=== PATIENT | female | born 1980 | race Caucasian/White ===

== ENCOUNTER 2018-01-03 15:27 | Inpatient (IN) ==
--- NOTE | 2018-01-03 15:48 | Emergency Department Note ---
ED Disposition Clinical Impression: Acute appendicitis Disposition: Still a Patient Condition on Discharge: Good Instructions: DI for Acute Abdomen Referrals: Shruti Mckeon APRN [Primary Care Provider] - - Critical Care Critical Care Time: No Attestation: On 01/03/18, the high probability of a clinically significant, sudden or life threatening deterioration of the following system(s) required my full and direct attention, intervention and personal management. The time I documented below is in addition to time spent performing reported procedures but includes the following listed in this critical care notation. Medical Decision Making - Medical Records MR Comment: [id number] Radiology called Acute appendicitis, I truman Mitchell MD he stated to call in surgery team, I truman staff to call in team. dw patient. - Oscar Inquiry Pt receiving controlled substance: No Vital Signs: 01/03/18 15:34 01/03/18 16:30 01/03/18 17:10 Temperature 98 F 97.8 F Temperature Source Oral Oral Pulse Rate [Right Brachial] 104 H 77 73 Respiratory Rate 18 18 18 Blood Pressure [Right Arm] 158/101 138/78 137/92 Blood Pressure Mean [Right Arm] 120 98 107 Blood Pressure Source [Right Arm] Automatic Cuff Automatic Cuff Automatic Cuff Blood Pressure Position [Right Arm] Sitting Supine Sitting 02 Sat by Pulse Oximetry 99 98 100 Oxygen Delivery Method Room Air Room Air Room Air 01/03/18 17:18 Temperature Temperature Source Pulse Rate [Right Brachial] 82 Respiratory Rate 16 Blood Pressure [Right Arm] 160/73 Blood Pressure Mean [Right Arm] 102 Blood Pressure Source [Right Arm] Automatic Cuff Blood Pressure Position [Right Arm] Sitting 02 Sat by Pulse Oximetry 95 Oxygen Delivery Method Room Air - Lab Data Lab Results 01/03/18 15:40: WBC 11.2 H, RBC 4.61, Hgb 13.9, Hct 42.3, MCV 91.9, MCH 30.2, MCHC 32.9, RDW 12.6, Plt Count 310, MPV 8.1, Neut % (Auto) 70.4, Lymph % (Auto) 25.3, [place] % (Auto) 3.4, Eos % (Auto) 0.5, Baso % (Auto) 0.4, Neut # (Auto) 7.9 H, Lymph # (Auto) 2.8, [place] # (Auto) 0.4, Eos # (Auto) 0.1, Baso # (Auto) 0.0 01/03/18 15:40: Sodium 137, Potassium 3.7, Chloride 103, Carbon Dioxide 26, Anion Gap 11.7, BUN 11, Creatinine 0.84, Estimated Creat Clear 127, Estimated GFR 77, Est GFR ( Amer) 93, Glucose 111 H, Calcium 8.9, Total Bilirubin 0.3, AST 25, ALT 49, Alkaline Phosphatase 172 H, Total Protein 8.4 H, Albumin 4.2, Globulin 4.2 H, Albumin/Globulin Ratio 1.0 L, Amylase 58, Lipase 104 01/03/18 15:55: Urine Color Yellow, Urine Appearance Clear, Urine pH 6.0, Ur Specific [place] >= 1.030, Urine Protein Negative, Urine Glucose (UA) Negative, Urine Ketones Negative, Urine Blood 2+, Urine Nitrate Negative, Urine Bilirubin Negative, Urine Urobilinogen 0.2, Ur Leukocyte Esterase Negative, Urine RBC Occasional, Urine WBC Occasional, Ur Squamous Epith Cells Tntc, Urine Bacteria 2 +, Urine Mucus 1+ 01/03/18 15:58: Urine HCG, Qual Negative Result diagrams: 01/03/18 15:40 01/03/18 15:40 Orders (Tests/Meds): ED MEDICATIONS Generic Name Dose Route Start Last Admin Trade Name Freq PRN Reason Stop Dose Admin Ertapenem 1 gm/ Sodium 50 mls @ 100 mls/hr 01/03/18 17:30 Chloride IV 01/17/18 17:29 Q24H HERNAN Protocol Discontinued Medications Generic Name Dose Route Start Last Admin Trade Name Freq PRN Reason Stop Dose Admin Diphenhydramine HCl 25 mg 01/03/18 15:49 01/03/18 16:10 Benadryl 50mg/1ml Vial IV 01/03/18 15:50 25 mg ONCE ONE Administration Diphenhydramine HCl 25 mg 01/03/18 17:19 Benadryl 50mg/1ml Vial IV 01/03/18 17:20 ONCE ONE Sodium Chloride 1,000 mls @ 999 mls/hr 01/03/18 16:00 01/03/18 16:03 Sod Chlor 0.9% 1000ml Bag IV 01/03/18 17:00 999 mls/hr .Q1H1M HERNAN Administration Ketorolac Tromethamine 15 mg 01/03/18 17:19 Toradol 30mg/Ml Vial IV 01/03/18 17:20 ONCE ONE Metoclopramide HCl 10 mg 01/03/18 15:49 01/03/18 16:11 Reglan 10mg/2ml Vial IVP 01/03/18 15:50 10 mg ONCE ONE Administration Metoclopramide HCl 10 mg 01/03/18 17:19 Reglan 10mg/2ml Vial IVP 01/03/18 17:20 ONCE ONE Ondansetron HCl 4 mg 01/03/18 16:02 01/03/18 16:03 Zofran 4mg/2ml Vial IV 01/03/18 16:03 4 mg ONCE ONE Administration ORDERS Category Date Time Status Urine Culture Stat Micro 01/03/18 15:55 Received General Adult HPI - General Chief complaint: Abdominal Pain Stated complaint: Sharp pains in abdomen, nauseated Time Seen by Provider: 01/03/18 15:47 Mode of Arrival: Ambulatory Limitations: No Limitations Description of Symptoms (Recalled from ER Triage Doc. by RN): pt states woke up this morning at 0200, by expressive abd cramping and pain; nausea. no vomiting. no diarrhea. used the bathroom for stools x 3, but they were just really soft, not watery. very anxious and crying with presentation. has significant history including anxiety for which she takes vistaril and she is also a suboxone patient - History of Present Illness HPI narrative: Patient states she woke up at 2 AM with crampy abdominal pain she states she has some diarrhea nausea she denies any vomiting denies any fevers or chills states her pain is moderate to severe at times and more in her bilateral lower quadrant no radiation. Hx of Suboxone - Related Data Home Medications Medication Instructions Recorded Confirmed Buprenorphine HCl/Naloxone HCl 1 tab PO BID 10/25/17 10/25/17 [Zubsolv 5.7-1.4 mg Tablet Sl] Previous Rx's Medication Instructions Recorded Nitrofurantoin Monohyd/M-Cryst 100 mg PO BID #20 cap 10/25/17 [Macrobid 100 mg Capsule] Phenazopyridine HCl [Pyridium 200 pow PO TID PRN #6 tab 10/25/17 200mg Tablet] Allergies Allergy/AdvReac Type Severity Reaction Status Date / Time codeine Allergy Intermediate Hives Verified 10/03/17 23:42 Sulfa (Sulfonamide Allergy Intermediate Hives Verified 10/03/17 23:42 Antibiotics) [facility] History I have reviewed the patient's past medical history: Yes Medical History: Denies:: Cancer, Diabetes Mellitus Type 1, Diabetes Mellitus Type 2, Hypertension, MRSA Other Surgeries: Yes: No Previous Surgery Amputation: No Fractures: No - Social History Educational Level: Completed High School Smoking Status: Current every day smoker Tobacco Type: cigarettes Alcohol Intake: former Alcohol Intake Frequency:: holidays/special occasions only Substance Use Type: former substance user - Psychiatric History Expresses thoughts of harming self/others: None Suicide Plan Description: No Plan ROS Obtained: Yes All systems reviewed & no additional complaints Physical Exam General Appearance: Nontoxic Head: Normocephalic, without obvious abnormality, atraumatic. Eyes: conjunctiva/corneas clear ENT: Mucous membranes moist. Neck: No jugular venous distention. Cardiac: regular rate and rhythm Lungs: Clear to auscultation bilaterally Abdomen: Diffusely tender, Nondistended, positive bowel sounds, no rebound : No CVA tenderness Extremities: no edema Musculoskeletal: No chest wall tenderness Skin: No rashes or lesions to exposed skin. Neurologic: Alert. No gross focal deficits Psychiatric: anxious affect - General General appearance: anxious - Respiratory Respiratory exam: Absent: respiratory distress - Cardiovascular Cardiovascular exam: Absent: JVD - Neurological Exam Neurological exam: Present: alert
[2018-01-03 16:07] LABS: Appearance,Urine CLEAR (Clear); Bilirubin,Urine Negative (Negative); Blood, Urine 2+ (Negative); Color,Urine YELLOW (Yellow); Glucose,Urine (UA) Negative (Negative); Ketones,Urine Negative (Negative); Leukocyte Esterase,Urine Negative (Negative); Microscopic, Urine URINE MICROSCOPIC (MICROSCOPIC); Protein,Urine Negative (Negative); Specific Gravity, Urine >= 1.030 (1.005-1.030); Urobilinogen,Urine 0.2 EU/dl (0.2)
[2018-01-03 16:14] LABS: Bacteria,Urine 2+ /lpf; Mucus,Urine 1+ /lpf; RBC,Urine Occasional #/hpf (0-3); Squamous Epithelial Cell,Urine TNTC #/hpf (0-5); WBC,Urine Occasional #/hpf (0-3)
[2018-01-03 16:14] LABS: Albumin Level 4.2 gm/dL (3.4-5.0); Anion Gap 11.7 mEq/L (5-15); Bilirubin,Total 0.3 mg/dL (0.2-1.0); Calcium 8.9 mg/dL (8.5-10.1); Globulin 4.2 gm/dl (1.3-3.2); Potassium 3.7 mmoL/L (3.5-5.1); Total Protein,Serum 8.4 gm/dL (6.4-8.2)
[2018-01-03 16:23] LABS: Basophils % 0.4 % (0.1-2.0); Eosinophils # 0.1 K/mm3 (0.0-0.4); Eosinophils % 0.5 % (0.1-12.0); Hematocrit 42.3 % (37.0-47.0); Hemoglobin 13.9 g/dL (12.2-16.2); Lymphocytes # 2.8 K/mm3 (0.7-4.5); Lymphocytes % 25.3 K/mm3 (10-50); Mean Corpuscular HGB Conc 32.9 g/dL (31.8-35.4); Mean Corpuscular Hemoglobin 30.2 pg (27.0-31.2); Mean Corpuscular Volume 91.9 fl (81-99); Mean Platelet Volume 8.1 fl (7.4-10.4); Monocytes # 0.4 K/mm3 (0.1-1.0); Monocytes % 3.4 % (1.7-9.3); Neutrophils # 7.9 K/mm3 (1.8-7.8); Neutrophils % 70.4 % (37.0-80.0); Platelet Count 310 K/mm3 (142-424); Red Blood Count 4.61 M/mm3 (4.20-5.40); Red Cell Distribution Width 12.6 % (11.5-17.5); White Blood Count 11.2 K/mm3 (4.8-10.8)
--- NOTE | 2018-01-03 19:52 | Operative Note ---
Date of procedure: 01/03/18 Pre-op Diagnosis:: Appendicitis Post-op Diagnosis:: Appendicitis with focal perforation Procedure performed:: Laparoscopic appendectomy Surgeon:: John Mitchell MD MEDICAL HOUSEKEEPER:: Thierno Sher Anesthesia: GETA Estimated blood loss (mL): 15 Operative findings:: Severe inflammation of the mid and distal appendix with focal perforation with minimal manipulation Operative note:: After informed consent was obtained, the patient was taken to the operating room and placed in the supine position. General anesthesia was induced and her abdomen was prepped and draped in a sterile fashion. After infiltration with local anesthetic an infraumbilical incision was made. A Veress needle was placed in position. The abdomen was insufflated. A 12 mm optical trocar was placed in position. Under direct visualization, an additional 5 mm trocar was placed in the suprapubic position. A 5 mm trocar was then placed in the left lower quadrant. The appendix was easily visualized. Severe inflammation and periappendiceal fat stranding noted. With minimal manipulation the appendix had a focal perforation noted along its mid/distal region. The fluid was evacuated by way of suction and copious irrigation was also utilized. A small window was made at the base of the mesoappendix and a ADDY stapler was utilized to transect at this site. The mesoappendix was carefully taken down with harmonic justice. The appendix was placed in a retrieval bag and removed through the infraumbilical trocar site. No sign of ongoing bleeding or stump leak was noted. Evaluation of the staple margin revealed good hemostasis. No pockets of purulence were noted. The right lower quadrant was once again irrigated. The fascia at the infraumbilical trocar site was reapproximated with interrupted Ethibond. All wounds were irrigated and skin was closed with 4 -0 Monocryl. Sterile dressings were applied. The patient's anesthetic agents were reversed and she was extubated prior to transfer to recovery. Condition: stable Disposition: PACU Specimens:: Appendix Complications:: No immediate
--- NOTE | 2018-01-03 19:54 | Progress Note ---
[facility] Anesthesia Checklist - Structural Data Admitted From: Home Planned Operative Procedure/s: lap appy Consent for Planned Operative Procedure(s) Verified: Yes - Airway Assessment C-Spine Mobility Assessed: Yes TMJ Mobility Assessed: Yes Dentition: Good Dentition - Neurological Assessment Level of Consciousness: Awake, Alert, Appropriate - Anesthesia Plan Anesthesia Risk discussed: Yes Anesthesia Plan: Verified ASA Class: II Anesthesia Type: General [facility] Anesthesia HX I have reviewed the patient's past medical history: Yes Medical History: Denies:: Cancer, Diabetes Mellitus Type 1, Diabetes Mellitus Type 2, Hypertension, MRSA, Seizures Other Surgeries: Yes: No Previous Surgery Amputation: No Fractures: No
--- NOTE | 2018-01-03 19:55 | Progress Note ---
[facility] Anesthesia Record Part I Intake, IV Amount: 1,500 Estimated blood loss (mL): 0 Urine output (mL): 200 Blood Pressure: 128/84 SaO2: 97 Pulse Rate: 93 Respiratory Rate: 12 Temperature: 97.8 F Patient is:: Awake, Stable Stable to PACU at:: 19:50
--- NOTE | 2018-01-03 19:56 | Progress Note ---
[facility] Anesthesia Record Part II Discharge Time: 20:20 Destination: floor PACU nurse assessment reviewed?: Yes Patient Condition:: Good Anesthesia Complications:: None
--- NOTE | 2018-01-04 06:24 | Progress Note ---
Subjective Patient reports: other (sore. ambulating.) Exam Vital signs and Labs for Last 24 Hours: Temp Pulse Resp BP Pulse Ox 98.5 F 94 H 18 111/67 98 01/04/18 03:52 01/04/18 03:52 01/04/18 03:52 01/04/18 03:52 01/04/18 03:52 Laboratory Results - last 24 hr 01/03/18 15:40: WBC 11.2 H, RBC 4.61, Hgb 13.9, Hct 42.3, MCV 91.9, MCH 30.2, MCHC 32.9, RDW 12.6, Plt Count 310, MPV 8.1, Neut % (Auto) 70.4, Lymph % (Auto) 25.3, [place] % (Auto) 3.4, Eos % (Auto) 0.5, Baso % (Auto) 0.4, Neut # (Auto) 7.9 H, Lymph # (Auto) 2.8, [place] # (Auto) 0.4, Eos # (Auto) 0.1, Baso # (Auto) 0.0 01/03/18 15:40: Sodium 137, Potassium 3.7, Chloride 103, Carbon Dioxide 26, Anion Gap 11.7, BUN 11, Creatinine 0.84, Estimated Creat Clear 127, Estimated GFR 77, Est GFR ( Amer) 93, Glucose 111 H, Calcium 8.9, Total Bilirubin 0.3, AST 25, ALT 49, Alkaline Phosphatase 172 H, Total Protein 8.4 H, Albumin 4.2, Globulin 4.2 H, Albumin/Globulin Ratio 1.0 L, Amylase 58, Lipase 104 01/03/18 15:55: Urine Color Yellow, Urine Appearance Clear, Urine pH 6.0, Ur Specific [place] >= 1.030, Urine Protein Negative, Urine Glucose (UA) Negative, Urine Ketones Negative, Urine Blood 2+, Urine Nitrate Negative, Urine Bilirubin Negative, Urine Urobilinogen 0.2, Ur Leukocyte Esterase Negative, Urine RBC Occasional, Urine WBC Occasional, Ur Squamous Epith Cells Tntc, Urine Bacteria 2 +, Urine Mucus 1+ 01/03/18 15:58: Urine HCG, Qual Negative 01/03/18 18:10: Urine Color Yellow, Urine Appearance Clear, Urine pH 5.5, Ur Specific [place] 1.020, Urine Protein Negative, Urine Glucose (UA) Negative, Urine Ketones Negative, Urine Blood 1+, Urine Nitrate Negative, Urine Bilirubin Negative, Urine Urobilinogen 0.2, Ur Leukocyte Esterase Negative, Urine RBC Occasional, Urine WBC Occasional, Ur Squamous Epith Cells 5-10, Urine Bacteria 1 + I & O for Last 24 hours: Intake & Output 01/01/18 01/02/18 01/03/18 01/04/18 11:59 11:59 11:59 11:59 Intake Total 3633 / 3633 Balance 3633 / 3633 Weight 199 lb 3.2 oz - Constitutional no acute distress - *Routine Cardiovascular Exam Present: RRR - *Routine Abdominal Exam Present: soft Progress Note: A&P (1) Acute appendicitis Status: Acute Assessment and plan: Focal perforation with initial manipulation of the appendix secondary to severe inflammatory changes and suppurative changes. Continue IV antibiotics for now Likely advance diet slowly later today Increase ambulation Current Visit: Yes
[2018-01-04 07:23] LABS: Basophils % 0.1 % (0.1-2.0); Lymphocytes # 0.8 K/mm3 (0.7-4.5); Lymphocytes % 4.5 K/mm3 (10-50); Mean Corpuscular HGB Conc 32.4 g/dL (31.8-35.4); Mean Corpuscular Hemoglobin 29.9 pg (27.0-31.2); Mean Corpuscular Volume 92.3 fl (81-99); Mean Platelet Volume 8.6 fl (7.4-10.4); Monocytes # 0.6 K/mm3 (0.1-1.0); Neutrophils # 17.2 K/mm3 (1.8-7.8); Neutrophils % 92.4 % (37.0-80.0); Platelet Count 281 K/mm3 (142-424); Red Blood Count 4.02 M/mm3 (4.20-5.40); Red Cell Distribution Width 12.7 % (11.5-17.5)
--- NOTE | 2018-01-04 07:25 | Pharmacy Consult Notes ---
[facility] Pharmacy VTE Monitoring - Patient Demographics Admission date: 01/03/18 Report Date: 01/04/18 Time: 07:25 Allergies/Adverse Reactions: Patient Allergies codeine Allergy (Intermediate, Verified 10/03/17 23:42) Hives Sulfa (Sulfonamide Antibiotics) Allergy (Intermediate, Verified 10/03/17 23:42) Hives Height: 1.63 m Weight: 90.356 kg Patient Problems: Current Active Problems Acute appendicitis (Acute) - VTE Risk Labs: VTE Related Lab Results Hgb 13.9 g/dL (12.2-16.2) 01/03/18 15:40 Hct 42.3 % (37.0-47.0) 01/03/18 15:40 Plt Count 310 K/mm3 (142-424) 01/03/18 15:40 BUN 11 mg/dL (7-18) 01/03/18 15:40 Creatinine 0.84 mg/dL (0.55-1.02) 01/03/18 15:40 Estimated Creat Clear 127 mL/min (0-300) 01/03/18 15:40 Was VTE Risk Assessment Performed: Yes VTE Score: 2 VTE Risk Level: Very Low Risk - Prophylaxis VTE Prophylaxis Ordered?: Yes Types of VTE Prophylaxis: TEDS Knee High Location of Applied Device: Bilateral Lower Extremeties - VTE Diagnosis Confirmed Treatment or plan recommended: Continue Current Treatment
[2018-01-04 07:32] LABS: Hematocrit 36.8 % (37.0-47.0); Hemoglobin 11.9 g/dL (12.2-16.2); White Blood Count 18.5 K/mm3 (4.8-10.8)
[2018-01-04 09:25] LABS: Lymphocytes % 6 % (10-50); Monocytes % 3 % (2-9); Neutrophils % 86 % (42-76); Total Cells Counted 100
[2018-01-04 09:26] LABS: RBC Morphology Normal
[2018-01-05 06:19] LABS: Basophils % 0.3 % (0.1-2.0); Eosinophils # 0.2 K/mm3 (0.0-0.4); Eosinophils % 1.4 % (0.1-12.0); Lymphocytes # 2.2 K/mm3 (0.7-4.5); Lymphocytes % 16.7 K/mm3 (10-50); Mean Corpuscular HGB Conc 32.9 g/dL (31.8-35.4); Mean Corpuscular Hemoglobin 30.4 pg (27.0-31.2); Mean Corpuscular Volume 92.4 fl (81-99); Mean Platelet Volume 8.9 fl (7.4-10.4); Monocytes # 0.5 K/mm3 (0.1-1.0); Monocytes % 3.8 % (1.7-9.3); Neutrophils # 10.2 K/mm3 (1.8-7.8); Neutrophils % 77.8 % (37.0-80.0); Platelet Count 239 K/mm3 (142-424); Red Blood Count 3.52 M/mm3 (4.20-5.40); Red Cell Distribution Width 12.8 % (11.5-17.5)
[2018-01-05 06:35] LABS: Hematocrit 32.6 % (37.0-47.0); Hemoglobin 10.8 g/dL (12.2-16.2); White Blood Count 12.7 K/mm3 (4.8-10.8)
--- NOTE | 2018-01-05 06:38 | Progress Note ---
Subjective Patient reports: feels better, still having pain Exam Vital signs and Labs for Last 24 Hours: Temp Pulse Resp BP Pulse Ox 99.1 F 98 H 18 123/74 91 L 01/05/18 04:00 01/05/18 04:00 01/05/18 04:00 01/05/18 04:00 01/05/18 04:00 Laboratory Results - last 24 hr 01/04/18 06:15: WBC 18.5 H D, RBC 4.02 L, Hgb 11.9 L D, Hct 36.8 L, MCV 92.3, MCH 29.9, MCHC 32.4, RDW 12.7, Plt Count 281, MPV 8.6, Neut % (Auto) 92.4 H, Lymph % (Auto) 4.5 L, [place] % (Auto) 3.0, Eos % (Auto) 0.0 L, Baso % (Auto) 0.1, Neut # (Auto) 17.2 H, Lymph # (Auto) 0.8, [place] # (Auto) 0.6, Eos # (Auto) 0.0, Baso # (Auto) 0.0, Total Counted 100, Neutrophils % (Manual) 86 H, Band Neutrophils % 5.0, Lymphocytes % (Manual) 6 L, Monocytes % (Manual) 3, Platelet Estimate Normal, RBC Morphology Normal 01/05/18 05:45: WBC 12.7 H D, RBC 3.52 L, Hgb 10.8 L, Hct 32.6 L, MCV 92.4, MCH 30.4, MCHC 32.9, RDW 12.8, Plt Count 239, MPV 8.9, Neut % (Auto) 77.8, Lymph % ( Auto) 16.7, [place] % (Auto) 3.8, Eos % (Auto) 1.4, Baso % (Auto) 0.3, Neut # (Auto ) 10.2 H, Lymph # (Auto) 2.2, [place] # (Auto) 0.5, Eos # (Auto) 0.2, Baso # (Auto ) 0.0 I & O for Last 24 hours: Intake & Output 01/02/18 01/03/18 01/04/18 01/05/18 11:59 11:59 11:59 11:59 Intake Total 4113 / 4113 3847 / 3847 Output Total 500 / 500 Balance 3613 / 3613 3847 / 3847 Weight 199 lb 3.2 oz Microbiology Reports for the Last 24 Hours: Microbiology 01/03/18 15:55 Urine,Clean Catch Urine Culture - Preliminary - Constitutional no acute distress - *Routine Respiratory Exam Absent: respiratory distress - *Routine Abdominal Exam Present: soft Comments: dressing intact no erythema Progress Note: A&P (1) Acute appendicitis Status: Acute Assessment and plan: stable s/p lap appy advance diet possible d/c home later today Current Visit: Yes
--- NOTE | 2018-01-05 15:18 | Discharge Summary ---
General - General Admission date:: 01/03/18 Discharge date: 01/05/18 HPI HPI: This is a 37-year-old female who presented to the emergency department with right lower quadrant abdominal pain. A CT scan revealed changes consistent with appendicitis. The surgical service was consulted for admission. Hospital Course Hospital Course: The patient underwent laparoscopic appendectomy. Please see operative report for detail. Focal perforation with minimal manipulation was noted and the decision to maintain the patient on IV antibiotics during the immediate postoperative period was made. She progressed well. She remained afebrile stable normal vital signs throughout her postoperative course. Her diet was slowly advanced and she tolerated a full liquid diet without difficulty. On the afternoon of postoperative day 2 she was deemed appropriate for discharge. Objective Vital signs: Temp Pulse Resp BP Pulse Ox 98.6 F 92 H 18 122/72 92 L 01/05/18 07:52 01/05/18 07:52 01/05/18 14:16 01/05/18 07:52 01/05/18 07:52 no acute distress - *Routine HEENT Exam Head: Present: normocephalic, atraumatic - *Routine Neck Exam Present: full ROM - Routine Chest/Breast/Axilla Exam Chest wall: Absent: tenderness - *Routine Respiratory Exam Absent: respiratory distress - *Routine Cardiovascular Exam Present: RRR - *Routine Abdominal Exam Present: soft, tenderness. Absent: rebound Comments: RLQ - *Routine Extremities Exam Present: full ROM. Absent: cyanosis, clubbing, edema - Routine Back/Spine/Pelvis Exam Back/Spine: Present: full ROM - *Routine Skin Exam Present: intact - *Routine Neurological Exam Present: alert, oriented X3 - Routine Psychiatric Exam Present: normal affect Results Labs on day of discharge: Labs from last 24 hours 01/05/18 01/03/18 05:45 15:55 WBC 12.7 H D RBC 3.52 L Hgb 10.8 L Hct 32.6 L MCV 92.4 MCH 30.4 MCHC 32.9 RDW 12.8 Plt Count 239 MPV 8.9 Neut % (Auto) 77.8 Lymph % (Auto) 16.7 [place] % (Auto) 3.8 Eos % (Auto) 1.4 Baso % (Auto) 0.3 Neut # (Auto) 10.2 H Lymph # (Auto) 2.2 [place] # (Auto) 0.5 Eos # (Auto) 0.2 Baso # (Auto) 0.0 Urine Color Yellow Urine Appearance Clear Urine pH 6.0 Ur Specific [place] >= 1.030 Urine Protein Negative Urine Glucose (UA) Negative Urine Ketones Negative Urine Blood 2+ Urine Nitrate Negative Urine Bilirubin Negative Urine Urobilinogen 0.2 Ur Leukocyte Esterase Negative Urine RBC Occasional Urine WBC Occasional Ur Squamous Epith Cells Tntc Urine Bacteria 2+ Urine Mucus 1+ Preliminary micro results at discharge 01/03/18 15:55 Urine Culture - Preliminary Urine,Clean Catch Gram Negative Rods DS: Diagnosis - Discharge Diagnosis (1) Acute appendicitis Status: Acute Problem details: Focal perforation noted intraoperatively with minimal manipulation Discharge Plan - Patient Discharge Instructions ACTIVITY: No heavy lifting DIET: advance to your usual diet Additional Instructions: Continue Suboxone only after completion of post-op pain medication. Patient Instructions: DI for Acute Abdomen - Follow up Plan Follow up with: Shruti Mckeon APRN [Primary Care Provider] - John Mitchell MD [Staff Physician] - 01/10/18 Disposition: Home, Self-Senior Living Medications: Home Medications Medication Instructions Recorded Confirmed Type Buprenorphine HCl/Naloxone HCl 2 tab SL BID 10/25/17 01/04/18 History [Zubsolv 5.7-1.4 mg Tablet Sl] hydrOXYzine HCl [Hydroxyzine HCl] 25 mg PO BID 01/04/18 01/04/18 History Prescriptions/Medication Reconciliation: Continue Buprenorphine HCl/Naloxone HCl [Zubsolv 5.7-1.4 mg Tablet Sl] 2 tab SL BID hydrOXYzine HCl [Hydroxyzine HCl] 25 mg PO BID
== END 2018-01-05 15:50 | disposition home or self-care (01) ==
LOC: ER 15:27 → OR 18:05 → 2ND 18:07 → OR 18:07 → OBSVTOIN 20:24
PROVIDERS: ADMIT Surgery; ATTEND Surgery

== ENCOUNTER 2018-02-06 11:01 | Inpatient (IN) ==
--- NOTE | 2018-02-06 11:32 | Emergency Department Note ---
ED Disposition Clinical Impression: Pelvic abscess, Systemic inflammatory response syndrome (SIRS) Disposition: Still a Patient Condition on Discharge: Serious Referrals: Shruti Mckeon APRN [Primary Care Provider] - - Critical Care Critical Care Time: Yes Attestation: On , the high probability of a clinically significant, sudden or life threatening deterioration of the following system(s) required my full and direct attention, intervention and personal management. The time I documented below is in addition to time spent performing reported procedures but includes the following listed in this critical care notation. Vital system(s) involved:: Circulatory Failure My critical care processes included: Assessment & monitoring of V/S, Initial and Re-exams, Data Review/Interpretation, Coordinating Care, Medication Orders and management, Documentation Medical Decision Making - Oscar Inquiry Pt receiving controlled substance: No Oscar was queried for this patient: No Vital Signs: 02/06/18 11:19 02/06/18 11:34 02/06/18 12:50 Temperature 98 F Temperature Source Tympanic Pulse Rate [Right Radial] 147 H 134 H 102 H Respiratory Rate 20 22 Blood Pressure [Right Arm] 86/48 105/59 109/73 Blood Pressure Mean [Right Arm] 60 74 85 Blood Pressure Source [Right Arm] Automatic Cuff Automatic Cuff Automatic Cuff Blood Pressure Position [Right Arm] Sitting Sitting Sitting 02 Sat by Pulse Oximetry 98 97 98 Oxygen Delivery Method Room Air Room Air - Lab Data Lab Results 02/06/18 11:25: WBC 65.3 H*, RBC 4.54, Hgb 13.7, Hct 42.1, MCV 92.6, MCH 30.1, MCHC 32.5, RDW 12.4, Plt Count 118 L, MPV 12.9 H, Neut % (Auto) 82.4 H, Lymph % (Auto) 11.3, [place] % (Auto) 5.4, Eos % (Auto) 0.9, Baso % (Auto) 2.7 H, Neut # (Auto) 53.8 H, Lymph # (Auto) 7.4 H, [place] # (Auto) 3.5 H, Eos # (Auto) 0.6 H, Baso # (Auto) 1.7 H, Total Counted 100, Neutrophils % (Manual) 50, Band Neutrophils % 4.0, Lymphocytes % (Manual) 32, Atypical Lymphs % 1.0, Monocytes % (Manual) 13 H, Differential Comment , Platelet Estimate Slight decrease, RBC Morphology Normal 02/06/18 11:25: Serum HCG, Qual Negative 02/06/18 11:40: Sodium 134 L, Potassium 3.8, Chloride 96 L, Carbon Dioxide 21, Anion Gap 20.8 H, BUN 22 H, Creatinine 1.44 H, Estimated Creat Clear 74, Estimated GFR 41 L, Est GFR ( Amer) 50 L, Glucose 183 H, Calcium 8.6, Total Bilirubin 2.6 H, AST 38 H, ALT 20, Alkaline Phosphatase 308 H, Total Protein 7.6, Albumin 2.3 L, Globulin 5.3 H, Albumin/Globulin Ratio 0.4 L 02/06/18 11:40: Lactate 4.4 H Result diagrams: 02/06/18 11:25 02/06/18 11:40 Orders (Tests/Meds): ED MEDICATIONS Generic Name Dose Route Start Last Admin Trade Name Freq PRN Reason Stop Dose Admin Ertapenem 1 gm/ Sodium 50 mls @ 100 mls/hr 02/06/18 11:45 Chloride IV 02/20/18 11:44 Q24H HERNAN Protocol Discontinued Medications Generic Name Dose Route Start Last Admin Trade Name Freq PRN Reason Stop Dose Admin Diatrizoate Meglum/Diatrizoate Sod 30 ml 02/06/18 11:27 02/06/18 11:39 Gastrografin 66%-10% 30ml PO 02/06/18 11:28 30 ml ONCE ONE Administration Diatrizoate Meglum/Diatrizoate Sod 30 ml 02/06/18 13:48 Gastrografin 66%-10% 30ml PO 02/06/18 13:49 ONCE ONE Sodium Chloride 1,000 mls @ 999 mls/hr 02/06/18 11:30 02/06/18 11:38 Sod Chlor 0.9% 1000ml Bag IV 02/06/18 12:30 999 mls/hr .Q1H1M HERNAN Administration Morphine Sulfate 2 mg 02/06/18 11:27 02/06/18 11:38 Morphine 2mg/Ml Syringe IV 02/06/18 11:28 2 mg ONCE ONE Administration Morphine Sulfate 2 mg 02/06/18 12:43 02/06/18 12:57 Morphine 2mg/Ml Syringe IV 02/06/18 12:44 2 mg ONCE ONE Administration Ondansetron HCl 4 mg 02/06/18 11:27 02/06/18 11:38 Zofran 4mg/2ml Vial IV 02/06/18 11:28 4 mg ONCE ONE Administration Promethazine HCl 12.5 mg 02/06/18 12:43 02/06/18 12:56 Phenergan 25mg/Ml 1ml Vial IV 02/06/18 12:44 12.5 mg ONCE ONE Administration Sodium Chloride 25 ml 02/06/18 12:43 Sod Chlor 0.9% 25ml Bag IV 02/06/18 12:44 ONCE ONE ORDERS Category Date Time Status Drug Screen,Urine Stat Lab 02/06/18 11:25 Ordered Lactic Acid Follow Up (RFLX 1) Stat Lab 02/06/18 12:13 Ordered Peripheral Smear Review Stat Lab 02/06/18 11:25 Received Urinalysis and Microscopic Stat Lab 02/06/18 11:25 Ordered Blood Culture Stat Micro 02/06/18 11:36 Ordered - CT Data CT Scan: Abdomen, Pelvis Time Received: 12:[address] Reviewed: Yes: I have viewed the radiologist's interpretation Preliminary Findings: Abnormal Findings Narrative: MPRESSION: 1. Complex pelvic fluid collection consistent with loculated pelvic abscess with phlegmonous changes and small amount of fluid in the pelvis along with ascites. 2. Generalized ascites. 3. The uterus shows some enhancement. This could be related to overlying inflammation. Medical Decision Narrative: The patient was initially hypotensive before she starts IV fluids repeated blood pressure was 105/74 with heart rate of 130/min, I order blood cultures lactic acid and IV antibiotic Invanz. her wbcs was 65k and orders to abdomen CT with IV contrast I called and discussed with Dr. Perez for stat read. I discussed with the patient and her pros and cons of obtaining IV contrast prior to obtaining BUN/creatinin, at this point the risk of peritonitis pelvic abscess and sepsis outweighs waiting for test results and she was agreeable. [address] Sandip Mello the surgeon who will discuss the CT scan with the radiologist Dr. Perez. Dr. Mello suggested the patient to be admitted to his service and Dr. Perez to do a CT scan guided abscess aspiration . Abdominal Pain HPI - General Stated Complaint: stomach pain vomiting Time Seen by Provider: 02/06/18 11:20 Mode of Arrival: Ambulatory Limitations: No Limitations Description of Symptoms (Recalled from ER Triage Doc. by RN): Abdominal pain - History of Present Illness HPI narrative: 37 years old white female smoker with no significant past medical history. She underwent uneventful appendectomy 1 months ago. 3 days ago she developed decreased appetite and this morning at 9:30 AM she developed multiple vomiting x 6 without hematemesis or coffee-ground emesis so she decided to come to the ED. on the way to the ED she developed periumbilical sharp pain that resolved spontaneously. Upon arrival to the ED she went to the bathroom and she had a good bowel move without melanotic stool or bleeding per rectum. Patient denies chest pain shortness of breath hemoptysis or palpitations. MD complaint: abdominal pain Consistency: now resolved Location: periumbilical Quality: sharp Radiation: none Relieving factors: nothing Exacerbating factors: other (She was riding in the car when the pain developed. ) Associated symptoms: nausea, vomiting - Related Data LMP Date: 02/03/18 Home Medications Medication Instructions Recorded Confirmed Buprenorphine HCl/Naloxone HCl 2 tab SL BID 10/25/17 01/04/18 [Zubsolv 5.7-1.4 mg Tablet Sl] hydrOXYzine HCl [Hydroxyzine HCl] 25 mg PO BID 01/04/18 01/04/18 hydroxyzine pamoate 25 mg capsule 25 mg PO QID PRN 01/10/18 Buprenorphine HCl/Naloxone HCl 5.7 mg PO BID 02/06/18 02/06/18 [Zubsolv 5.7-1.4 mg Tablet Sl] Allergies Allergy/AdvReac Type Severity Reaction Status Date / Time codeine Allergy Intermediate Hives Verified 02/06/18 11:26 Sulfa (Sulfonamide Allergy Intermediate Hives Verified 02/06/18 11:26 Antibiotics) [facility] History I have reviewed the patient's past medical history: Yes Medical History: Denies:: Cancer, Diabetes Mellitus Type 1, Diabetes Mellitus Type 2, Hypertension, MRSA, Seizures Other Medical History: Reports: Arthritis Other Surgeries: Yes: Appendectomy, Other Amputation: No Fractures: No - Social History Educational Level: Completed High School Smoking Status: Current every day smoker Tobacco Type: cigarettes # Packs/Day (cigarettes): 1 Alcohol Intake: never Alcohol Intake Frequency:: holidays/special occasions only Substance Use Type: former substance user Occupational Status: unemployed Housing: house Household Members: family - Psychiatric History Expresses thoughts of harming self/others: None Suicide Plan Description: No Plan Family Hx:: No significant family history ROS Obtained: Yes All systems reviewed & no additional complaints Physical Exam - General General appearance: alert, in no apparent distress - Head Head exam: atraumatic, normocephalic, normal inspection - Eye Eye exam: Present: normal appearance, PERRL, EOMI - ENT ENT exam: Present: normal exam, normal oropharynx, mucous membranes moist, TM's normal bilaterally, normal external ear exam - Neck Neck exam: Present: normal inspection, full ROM, trachea midline. Absent: meningismus, lymphadenopathy - Chest Chest inspection: Present: normal inspection, symmetric chest wall rise. Absent: tenderness - Respiratory Respiratory exam: Present: normal lung sounds bilaterally. Absent: respiratory distress - Cardiovascular Cardiovascular exam: Present: normal rhythm, tachycardia. Absent: JVD - Abdominal Exam Abdominal exam: Present: soft, tenderness, guarding, rigidity, diminished bowel sounds, tenderness at [place]Bur[place]'s Point, other (The abdomen is soft with right lower quadrant tenderness associated with guarding and rigidity diminished bowel sounds. ). Absent: distention, rebound - External exam: Present: normal external exam - Extremities Exam Extremities exam: Present: normal inspection, full ROM, normal capillary refill. Absent: calf tenderness - Back Exam Back exam: Present: normal inspection. Absent: tenderness, CVA tenderness (R), CVA tenderness (L) - Neurological Exam Neurological exam: Present: alert, oriented X3, CN II-XII intact, motor sensory deficit, reflexes normal - Psychiatric Psychiatric exam: Present: normal affect, normal mood - Skin Skin exam: Present: warm, dry, intact, normal color - Lymphatic Lymphatic Findings: no adenopathy
[2018-02-06 11:44] LABS: Basophils # 1.7 K/mm3 (0-0.2); Basophils % 2.7 % (0.1-2.0); Eosinophils # 0.6 K/mm3 (0.0-0.4); Eosinophils % 0.9 % (0.1-12.0); Hematocrit 42.1 % (37.0-47.0); Hemoglobin 13.7 g/dL (12.2-16.2); Lymphocytes # 7.4 K/mm3 (0.7-4.5); Lymphocytes % 11.3 K/mm3 (10-50); Mean Corpuscular HGB Conc 32.5 g/dL (31.8-35.4); Mean Corpuscular Hemoglobin 30.1 pg (27.0-31.2); Mean Corpuscular Volume 92.6 fl (81-99); Mean Platelet Volume 12.9 fl (7.4-10.4); Monocytes # 3.5 K/mm3 (0.1-1.0); Monocytes % 5.4 % (1.7-9.3); Neutrophils # 53.8 K/mm3 (1.8-7.8); Neutrophils % 82.4 % (37.0-80.0); Platelet Count 118 K/mm3 (142-424); Red Blood Count 4.54 M/mm3 (4.20-5.40); Red Cell Distribution Width 12.4 % (11.5-17.5)
[2018-02-06 11:48] LABS: White Blood Count 65.3 K/mm3 (4.8-10.8)
[2018-02-06 12:19] LABS: Albumin Level 2.3 gm/dL (3.4-5.0); Albumin/Globulin Ratio 0.4 (1.1-1.8); Anion Gap 20.8 mEq/L (5-15); Bilirubin,Total 2.6 mg/dL (0.2-1.0); Calcium 8.6 mg/dL (8.5-10.1); Globulin 5.3 gm/dl (1.3-3.2); Potassium 3.8 mmoL/L (3.5-5.1); Total Protein,Serum 7.6 gm/dL (6.4-8.2)
[2018-02-06 12:31] LABS: Lymphocytes % 32 % (10-50); Monocytes % 13 % (2-9); Neutrophils % 50 % (42-76); RBC Morphology Normal; Total Cells Counted 100
--- NOTE | 2018-02-06 13:45 | History & Physical Report ---
HPI HPI: ABDOMINAL PAIN Patient is a 37 year old female who had undergone laparoscopic appendectomy by Dr. Mitchell 4 weeks ago. She acutely inflamed appendix and there was focal perforation of the appendix with minimal manipulation intraoperatively. She did remain an inpatient for several days on intravenous antibiotics and since she was discharged on oral antibiotics. She had done well after surgery. However, about 5 days ago, she began experiencing abdominal discomfort across the lower abdomen in the belt line area with some radiation to her back. She felt pressure and bloating. This has persisted and become progressively more severe. She had increasing pain and discomfort today and presented to the emergency department this morning. Workup revealed a profound leukocytosis of 65,000 with mild lactic acidosis. She underwent CT scan. This reveals findings of a large pelvic abscess. Surgical consultation was obtained. [facility] History I have reviewed the patient's past medical history: Yes Medical History: Denies:: Cancer, Diabetes Mellitus Type 1, Diabetes Mellitus Type 2, Hypertension, MRSA, Seizures Other Medical History: Reports: Arthritis Other Surgeries: Yes: Appendectomy, Other Amputation: No Fractures: No - *Social History Educational Level: Completed High School Smoking Status: Current every day smoker Tobacco Type: cigarettes # Packs/Day (cigarettes): 1 Alcohol Intake: never Alcohol Intake Frequency:: holidays/special occasions only Substance Use Type: former substance user Occupational Status: unemployed Housing: house Household Members: family - Psychiatric History Expresses thoughts of harming self/others: None Suicide Plan Description: No Plan *Family Hx:: No significant family history Review of Systems - Constitutional Reports anorexia, Reports body ache(s) - Eyes Denies change in vision - ENT Denies dizziness - *Cardiovascular Denies chest pain - *Respiratory Denies shortness of breath - *Gastrointestinal Reports abdominal pain, Reports bloating - *Genitourinary Denies abnormal periods, Denies abnormal vaginal bleeding - *Musculoskeletal Denies abnormal walking - *Neurologic Denies dizziness Meds Home Medications Medication Instructions Recorded Confirmed Type Buprenorphine HCl/Naloxone HCl 2 tab SL BID 10/25/17 01/04/18 History [Zubsolv 5.7-1.4 mg Tablet Sl] hydrOXYzine HCl [Hydroxyzine HCl] 25 mg PO BID 01/04/18 01/04/18 History hydroxyzine pamoate 25 mg capsule 25 mg PO QID PRN 01/10/18 History Buprenorphine HCl/Naloxone HCl 5.7 mg PO BID 02/06/18 02/06/18 History [Zubsolv 5.7-1.4 mg Tablet Sl] Allergies Allergy/AdvReac Type Severity Reaction Status Date / Time codeine Allergy Intermediate Hives Verified 02/06/18 11:26 Sulfa (Sulfonamide Allergy Intermediate Hives Verified 02/06/18 11:26 Antibiotics) Exam Vital signs and Labs for Last 24 Hours: Temp Pulse Resp BP Pulse Ox 98 F 102 H 22 109/73 98 02/06/18 11:19 02/06/18 12:50 02/06/18 11:34 02/06/18 12:50 02/06/18 12:50 Laboratory Results - last 24 hr 02/06/18 11:25: WBC 65.3 H*, RBC 4.54, Hgb 13.7, Hct 42.1, MCV 92.6, MCH 30.1, MCHC 32.5, RDW 12.4, Plt Count 118 L, MPV 12.9 H, Neut % (Auto) 82.4 H, Lymph % (Auto) 11.3, [place] % (Auto) 5.4, Eos % (Auto) 0.9, Baso % (Auto) 2.7 H, Neut # (Auto) 53.8 H, Lymph # (Auto) 7.4 H, [place] # (Auto) 3.5 H, Eos # (Auto) 0.6 H, Baso # (Auto) 1.7 H, Total Counted 100, Neutrophils % (Manual) 50, Band Neutrophils % 4.0, Lymphocytes % (Manual) 32, Atypical Lymphs % 1.0, Monocytes % (Manual) 13 H, Differential Comment , Platelet Estimate Slight decrease, RBC Morphology Normal 02/06/18 11:25: Serum HCG, Qual Negative 02/06/18 11:40: Sodium 134 L, Potassium 3.8, Chloride 96 L, Carbon Dioxide 21, Anion Gap 20.8 H, BUN 22 H, Creatinine 1.44 H, Estimated Creat Clear 74, Estimated GFR 41 L, Est GFR ( Amer) 50 L, Glucose 183 H, Calcium 8.6, Total Bilirubin 2.6 H, AST 38 H, ALT 20, Alkaline Phosphatase 308 H, Total Protein 7.6, Albumin 2.3 L, Globulin 5.3 H, Albumin/Globulin Ratio 0.4 L 02/06/18 11:40: Lactate 4.4 H I & O for Last 24 hours: Intake & Output 02/04/18 02/05/18 02/06/18 02/07/18 11:59 11:59 11:59 11:59 Weight 190 lb Results - Results Lab Results Last 24 Hours:: Laboratory Results - last 24 hr 02/06/18 11:25: WBC 65.3 H*, RBC 4.54, Hgb 13.7, Hct 42.1, MCV 92.6, MCH 30.1, MCHC 32.5, RDW 12.4, Plt Count 118 L, MPV 12.9 H, Neut % (Auto) 82.4 H, Lymph % (Auto) 11.3, [place] % (Auto) 5.4, Eos % (Auto) 0.9, Baso % (Auto) 2.7 H, Neut # (Auto) 53.8 H, Lymph # (Auto) 7.4 H, [place] # (Auto) 3.5 H, Eos # (Auto) 0.6 H, Baso # (Auto) 1.7 H, Total Counted 100, Neutrophils % (Manual) 50, Band Neutrophils % 4.0, Lymphocytes % (Manual) 32, Atypical Lymphs % 1.0, Monocytes % (Manual) 13 H, Differential Comment , Platelet Estimate Slight decrease, RBC Morphology Normal 02/06/18 11:25: Serum HCG, Qual Negative 02/06/18 11:40: Sodium 134 L, Potassium 3.8, Chloride 96 L, Carbon Dioxide 21, Anion Gap 20.8 H, BUN 22 H, Creatinine 1.44 H, Estimated Creat Clear 74, Estimated GFR 41 L, Est GFR ( Amer) 50 L, Glucose 183 H, Calcium 8.6, Total Bilirubin 2.6 H, AST 38 H, ALT 20, Alkaline Phosphatase 308 H, Total Protein 7.6, Albumin 2.3 L, Globulin 5.3 H, Albumin/Globulin Ratio 0.4 L 02/06/18 11:40: Lactate 4.4 H Assessment and Plan - Assessment and plan all Dx Assessment and Plan for all problems:: It appears that the patient has a large pelvic abscess. He cannot be absolutely proven that this may be secondary to her severe appendicitis. I discussed the case with radiology. Plan will be for admission and arrangements this afternoon for percutaneous radiologic guided drainage of the abscess. Did inform the patient that this may be an secondary to alternative etiology and also I informed her that she may require additional intervention.
--- NOTE | 2018-02-06 15:43 | Pharmacy Consult Notes ---
[facility] Pharmacy VTE Monitoring - Patient Demographics Admission date: 02/06/18 Report Date: 02/06/18 Time: 15:43 Allergies/Adverse Reactions: Patient Allergies codeine Allergy (Intermediate, Verified 02/06/18 11:26) Hives Sulfa (Sulfonamide Antibiotics) Allergy (Intermediate, Verified 02/06/18 11:26) Hives Height: 1.63 m Weight: 86.183 kg Patient Problems: Current Active Problems Pelvic abscess (Acute) Systemic inflammatory response syndrome (SIRS) (Acute) - VTE Risk Labs: VTE Related Lab Results Hgb 13.7 g/dL (12.2-16.2) 02/06/18 11:25 Hct 42.1 % (37.0-47.0) 02/06/18 11:25 Plt Count 118 K/mm3 (142-424) L 02/06/18 11:25 BUN 22 mg/dL (7-18) H 02/06/18 11:40 Creatinine 1.44 mg/dL (0.55-1.02) H 02/06/18 11:40 Estimated Creat Clear 74 mL/min (0-300) 02/06/18 11:40 Clinical Trial Participant: No - Prophylaxis VTE Prophylaxis Ordered?: Yes Types of VTE Prophylaxis: TEDS Knee High
--- NOTE | 2018-02-06 16:48 | Progress Note ---
[facility] Anesthesia Checklist - Patient Identification Patient Identification: Arm Band, Verbal (Name & ) - Structural Data Admitted From: Inpatient Planned Operative Procedure/s: ct guided bx Consent for Planned Operative Procedure(s) Verified: Yes Verified Documents: History and Physical - NPO Status Verified Time NPO: 00:00 - Additional verifications Patient : No Anesthesia Reactions: No Hx Blood Transfusions: No Blood Transfusion Reaction: No Cephalosporin Allergy: No Previous Colonoscopy: No - Cardiovascular Assessment Heart Sounds: S1 & S2 Pulse Strength: Baseline Pulse Rhythm: Regular Peripheral Edema: No - Airway Assessment C-Spine Mobility Assessed: Yes TMJ Mobility Assessed: Yes Dentition: Good Dentition - Neurological Assessment Level of Consciousness: Awake, Alert, Appropriate Hx Seizures: No Numbness or tingling in extremities: No - Anesthesia Plan Anesthesia Risk discussed: Yes Anesthesia Plan: Verified ASA Class: II Anesthesia Type: MAC [facility] History I have reviewed the patient's past medical history: Yes Medical History: Reports:: Anxiety Denies:: Cancer, Diabetes Mellitus Type 1, Diabetes Mellitus Type 2, Hypertension, MRSA, Seizures Other Medical History: Reports: Arthritis Other Surgeries: Yes: Appendectomy, Other Amputation: No Fractures: No - *Social History Educational Level: Completed High School Smoking Status: Current every day smoker Tobacco Type: cigarettes # Packs/Day (cigarettes): 1 Alcohol Intake: never Alcohol Intake Frequency:: holidays/special occasions only Substance Use Type: former substance user Occupational Status: unemployed Housing: house Household Members: family - Psychiatric History Expresses thoughts of harming self/others: None Suicide Plan Description: No Plan *Family Hx:: No significant family history
[2018-02-06 22:02] LABS: Basophils # 3.9 K/mm3 (0-0.2); Basophils % 6.1 % (0.1-2.0); Eosinophils # 0.6 K/mm3 (0.0-0.4); Eosinophils % 0.9 % (0.1-12.0); Hematocrit 41.8 % (37.0-47.0); Hemoglobin 12.6 g/dL (12.2-16.2); Lymphocytes # 10.9 K/mm3 (0.7-4.5); Lymphocytes % 17.2 K/mm3 (10-50); Mean Corpuscular HGB Conc 30.1 g/dL (31.8-35.4); Mean Corpuscular Hemoglobin 30.7 pg (27.0-31.2); Mean Corpuscular Volume 102.2 fl (81-99); Mean Platelet Volume 10.1 fl (7.4-10.4); Monocytes # 3.7 K/mm3 (0.1-1.0); Monocytes % 5.9 % (1.7-9.3); Neutrophils # 48.1 K/mm3 (1.8-7.8); Platelet Count 71 K/mm3 (142-424); Red Blood Count 4.09 M/mm3 (4.20-5.40); Red Cell Distribution Width 12.3 % (11.5-17.5)
[2018-02-06 22:03] LABS: White Blood Count 63.3 K/mm3 (4.8-10.8)
[2018-02-06 22:05] LABS: ABG Base Excess -32.2 mmol/L (-2.4-2.3); ABG HCO3 2.5 mmhg (22.0-26.0); ABG PO2 382.5 mmhg (80-100)
[2018-02-06 22:06] LABS: ABG PCO2 16.7 mmhg (35.0-45.0); ABG PH 6.79 mmol/L (7.35-7.45)
[2018-02-06 22:22] LABS: Calcium 8.4 mg/dL (8.5-10.1)
[2018-02-06 22:23] LABS: Anion Gap 39.6 mEq/L (5-15)
[2018-02-06 22:24] LABS: Potassium 5.6 mmoL/L (3.5-5.1)
[2018-02-06 22:31] LABS: Eosinophils % 1 % (0-3); Hypochromasia 1+; Lymphocytes % 38 % (10-50); Monocytes % 8 % (2-9); Neutrophils % 43 % (42-76); Nucleated Red Blood Cells 1; Total Cells Counted 100
[2018-02-06 22:32] LABS: Macrocytosis 1+
--- NOTE | 2018-02-06 22:58 | Progress Note ---
Subjective Narrative: Was contacted by nursing staff at 10:04 PM that the patient had a sudden rapid clinical deterioration. She became acutely obtunded. She has findings of diminished oxygenation with cyanosis. I will ordered an ABG and CBC and was proceeded in route to the hospital. Upon arrival the patient had been intubated after rapid response was called was being transported to the CT scanner. She had CT scan of the head and abdomen and pelvis. Head CT was negative. Abdominal and pelvic CT revealed nonspecific findings as before with some intra- abdominal fluid and minor bowel wall thickening. Exam Vital signs and Labs for Last 24 Hours: Temp Pulse Resp BP Pulse Ox 98.7 F 120 H 16 123/91 94 L 02/06/18 18:59 02/06/18 18:59 02/06/18 18:59 02/06/18 18:59 02/06/18 18:30 Laboratory Results - last 24 hr 02/06/18 11:25: WBC 65.3 H*, RBC 4.54, Hgb 13.7, Hct 42.1, MCV 92.6, MCH 30.1, MCHC 32.5, RDW 12.4, Plt Count 118 L, MPV 12.9 H, Neut % (Auto) 82.4 H, Lymph % (Auto) 11.3, [place] % (Auto) 5.4, Eos % (Auto) 0.9, Baso % (Auto) 2.7 H, Neut # (Auto) 53.8 H, Lymph # (Auto) 7.4 H, [place] # (Auto) 3.5 H, Eos # (Auto) 0.6 H, Baso # (Auto) 1.7 H, Total Counted 100, Neutrophils % (Manual) 50, Band Neutrophils % 4.0, Lymphocytes % (Manual) 32, Atypical Lymphs % 1.0, Monocytes % (Manual) 13 H, Differential Comment , Platelet Estimate Slight decrease, RBC Morphology Normal 02/06/18 11:25: Serum HCG, Qual Negative 02/06/18 11:40: Sodium 134 L, Potassium 3.8, Chloride 96 L, Carbon Dioxide 21, Anion Gap 20.8 H, BUN 22 H, Creatinine 1.44 H, Estimated Creat Clear 74, Estimated GFR 41 L, Est GFR ( Amer) 50 L, Glucose 183 H, Calcium 8.6, Total Bilirubin 2.6 H, AST 38 H, ALT 20, Alkaline Phosphatase 308 H, Total Protein 7.6, Albumin 2.3 L, Globulin 5.3 H, Albumin/Globulin Ratio 0.4 L 02/06/18 11:40: Lactate 4.4 H 02/06/18 17:05: Lactate 2.1 H 02/06/18 19:26: Lactate 5.1 H 02/06/18 22:02: Sodium 138, Potassium 5.6 H D, Chloride 100, Carbon Dioxide 4 L* D, Anion Gap 39.6 H, BUN 28 H D, Creatinine 2.34 H D, Estimated Creat Clear 48, Estimated GFR 24 L, Est GFR ( Amer) 29 L D, Glucose 174 H, Calcium 8.4 L 02/06/18 22:04: ABG pH 6.79 L*, ABG pCO2 16.7 L, ABG pO2 382.5 H, ABG HCO3 2.5 L , ABG Total CO2 3.0 L, ABG Base Excess -32.2 L 02/06/18 : WBC 63.3 H*, RBC 4.09 L, Hgb 12.6, Hct 41.8, MCV 102.2 H, MCH 30.7, MCHC 30.1 L, RDW 12.3, Plt Count 71 L D, MPV 10.1, Neut % (Auto) 76.0, Lymph % (Auto) 17.2, [place] % (Auto) 5.9, Eos % (Auto) 0.9, Baso % (Auto) 6.1 H, Neut # (Auto) 48.1 H, Lymph # (Auto) 10.9 H, [place] # (Auto) 3.7 H, Eos # (Auto) 0.6 H, Baso # (Auto) 3.9 H, Total Counted 100, Neutrophils % (Manual) 43, Band Neutrophils % 7.0, Lymphocytes % (Manual) 38, Monocytes % (Manual) 8, Eosinophils % (Manual) 1, Metamyelocytes % 3.0 H, Nucleated RBCs 1, Platelet Estimate Marked decrease, Hypochromasia 1+, Macrocytosis 1+ I & O for Last 24 hours: Intake & Output 02/04/18 02/05/18 02/06/18 02/07/18 11:59 11:59 11:59 11:59 Intake Total 435 / 435 Output Total 300 / 300 Balance 135 / 135 Weight 190 lb 200 lb 9 oz - Constitutional obtunded Comments: Intubated - *Routine Abdominal Exam Present: distended Progress Note: A&P Assessment and Plan for All Diagnoses:: Arrangements are being made for transfer to [facility].
--- NOTE | 2018-02-06 23:17 | Discharge Summary ---
General - General Admission date:: 02/06/18 Discharge date: 02/06/18 HPI HPI: ABDOMINAL PAIN Patient is a 37 year old female who had undergone laparoscopic appendectomy by Dr. Mitchell 4 weeks ago. She had an acutely inflamed appendix and there was focal perforation of the appendix with minimal manipulation intraoperatively. She did remain an inpatient for a couple of days on intravenous antibiotics and subsequently she was discharged on oral antibiotics. She had done well after surgery. However, about 5-6 days ago, she began experiencing abdominal discomfort across the lower abdomen in the belt line area. She felt pressure and bloating. This has persisted and become progressively more severe. She had increasing pain and discomfort today and presented to the emergency department this morning. Workup revealed a profound leukocytosis of 65,000 with mild lactic acidosis. She underwent CT scan. This reveals findings of a large pelvic abscess. Surgical consultation was obtained. Hospital Course Hospital Course: Patient was seen and examined in the emergency department. She was alert and oriented. She had some tenderness mostly in the lower abdomen to deep palpation without diffuse guarding or rebound. The case was discussed with radiology and reviewed. She had this large pelvic abscess noted on her CT scan. Plan was made for percutaneous radiologic guidance. She was administered strong broad- spectrum systemic intravenous antibiotics and was taken to radiology. She did undergo placement of percutaneous drain by radiology which did require administration of propofol by anesthesia personnel due to the patient's discomfort from the procedure. She had a significant amount of tannish brown drainage aspirated from the percutaneous drain. Follow-up CT showed improvement of the abscess. She was admitted to the floor for inpatient management. She was continued on Invanz. She was ordered a limited diet. She was administered limited morphine and antiemetics as needed. Later that evening routine follow- up lactate level showed some increase after she had transient improvement. She was given additional IV fluids and Vancomycin was ordered to add to her antibiotic regimen. In the late evening of 02/06/2018, approximately [address] drain placement, she had an acute rapid clinical deterioration where she became acutely obtunded. Orders were given. Shortly thereafter rapid response was called and the ER physician presented and intubated the patient. She was started on vasopressor agents and was taken to CT scan where she underwent CT scan of the brain, abdomen, and pelvis. Per virtual radiologist CT scan of the head/brain was unremarkable. Abdominal pelvic CT scan reportedly reveals findings most consistent with nonspecific inflammation. Due to the patient's acute and profound deterioration to a critical status [facility] was contacted. Case was discussed with both the ER physician as well as the accepting physician on the [facility]. They agreed to take the patient in immediate transfer. Arrangements are made for transfer by air ambulance. Objective Vital signs: Temp Pulse Resp BP Pulse Ox 98.7 F 120 H 16 123/91 94 L 02/06/18 18:59 02/06/18 18:59 02/06/18 18:59 02/06/18 18:59 02/06/18 18:30 Results Labs on day of discharge: Labs from last 24 hours 02/06/18 02/06/18 02/06/18 Unknown 22:04 22:02 WBC 63.3 H* RBC 4.09 L Hgb 12.6 Hct 41.8 MCV 102.2 H MCH 30.7 MCHC 30.1 L RDW 12.3 Plt Count 71 L D MPV 10.1 Neut % (Auto) 76.0 Lymph % (Auto) 17.2 [place] % (Auto) 5.9 Eos % (Auto) 0.9 Baso % (Auto) 6.1 H Neut # (Auto) 48.1 H Lymph # (Auto) 10.9 H [place] # (Auto) 3.7 H Eos # (Auto) 0.6 H Baso # (Auto) 3.9 H Total Counted 100 Neutrophils % (Manual) 43 Band Neutrophils % 7.0 Lymphocytes % (Manual) 38 Atypical Lymphs % Monocytes % (Manual) 8 Eosinophils % (Manual) 1 Metamyelocytes % 3.0 H Nucleated RBCs 1 Differential Comment Platelet Estimate Marked decrease RBC Morphology Hypochromasia 1+ Macrocytosis 1+ ABG pH 6.79 L* ABG pCO2 16.7 L ABG pO2 382.5 H ABG HCO3 2.5 L ABG Total CO2 3.0 L ABG Base Excess -32.2 L Sodium 138 Potassium 5.6 H D Chloride 100 Carbon Dioxide 4 L* D Anion Gap 39.6 H BUN 28 H D Creatinine 2.34 H D Estimated Creat Clear 48 Estimated GFR 24 L Est GFR ( Amer) 29 L D Glucose 174 H Lactate Calcium 8.4 L Total Bilirubin AST ALT Alkaline Phosphatase Total Protein Albumin Globulin Albumin/Globulin Ratio Serum HCG, Qual 02/06/18 02/06/1818 19:26 17:05 11:40 WBC RBC Hgb Hct MCV MCH MCHC RDW Plt Count MPV Neut % (Auto) Lymph % (Auto) [place] % (Auto) Eos % (Auto) Baso % (Auto) Neut # (Auto) Lymph # (Auto) [place] # (Auto) Eos # (Auto) Baso # (Auto) Total Counted Neutrophils % (Manual) Band Neutrophils % Lymphocytes % (Manual) Atypical Lymphs % Monocytes % (Manual) Eosinophils % (Manual) Metamyelocytes % Nucleated RBCs Differential Comment Platelet Estimate RBC Morphology Hypochromasia Macrocytosis ABG pH ABG pCO2 ABG pO2 ABG HCO3 ABG Total CO2 ABG Base Excess Sodium Potassium Chloride Carbon Dioxide Anion Gap BUN Creatinine Estimated Creat Clear Estimated GFR Est GFR ( Amer) Glucose Lactate 5.1 H 2.1 H 4.4 H Calcium Total Bilirubin AST ALT Alkaline Phosphatase Total Protein Albumin Globulin Albumin/Globulin Ratio Serum HCG, Qual 02/06/18 02/06/18 02/06/18 11:40 11:25 11:25 WBC 65.3 H* RBC 4.54 Hgb 13.7 Hct 42.1 MCV 92.6 MCH 30.1 MCHC 32.5 RDW 12.4 Plt Count 118 L MPV 12.9 H Neut % (Auto) 82.4 H Lymph % (Auto) 11.3 [place] % (Auto) 5.4 Eos % (Auto) 0.9 Baso % (Auto) 2.7 H Neut # (Auto) 53.8 H Lymph # (Auto) 7.4 H [place] # (Auto) 3.5 H Eos # (Auto) 0.6 H Baso # (Auto) 1.7 H Total Counted 100 Neutrophils % (Manual) 50 Band Neutrophils % 4.0 Lymphocytes % (Manual) 32 Atypical Lymphs % 1.0 Monocytes % (Manual) 13 H Eosinophils % (Manual) Metamyelocytes % Nucleated RBCs Differential Comment Platelet Estimate Slight decrease RBC Morphology Normal Hypochromasia Macrocytosis ABG pH ABG pCO2 ABG pO2 ABG HCO3 ABG Total CO2 ABG Base Excess Sodium 134 L Potassium 3.8 Chloride 96 L Carbon Dioxide 21 Anion Gap 20.8 H BUN 22 H Creatinine 1.44 H Estimated Creat Clear 74 Estimated GFR 41 L Est GFR ( Amer) 50 L Glucose 183 H Lactate Calcium 8.6 Total Bilirubin 2.6 H AST 38 H ALT 20 Alkaline Phosphatase 308 H Total Protein 7.6 Albumin 2.3 L Globulin 5.3 H Albumin/Globulin Ratio 0.4 L Serum HCG, Qual Negative Discharge Plan - Patient Discharge Instructions ACTIVITY: Bed rest DIET: NPO Forms: Transfer Record - Follow up Plan Disposition: er Intermediate Care [facility] [place] Home Medications: Home Medications Medication Instructions Recorded Confirmed Type Buprenorphine HCl/Naloxone HCl 2 tab SL BID 10/25/17 02/06/18 History [Zubsolv 5.7-1.4 mg Tablet Sl] hydrOXYzine HCl [Hydroxyzine HCl] 25 mg PO BID 01/04/18 02/06/18 History hydroxyzine pamoate 25 mg capsule 25 mg PO QIDP PRN 01/10/18 02/06/18 History Buprenorphine HCl/Naloxone HCl 5.7 mg PO BID 02/06/18 02/06/18 History [Zubsolv 5.7-1.4 mg Tablet Sl] Prescriptions/Medication Reconciliation: Discontinued hydroxyzine pamoate 25 mg capsule 25 mg PO QIDP PRN PRN Reason: withdrawal symptoms Buprenorphine HCl/Naloxone HCl [Zubsolv 5.7-1.4 mg Tablet Sl] 5.7 mg PO BID Buprenorphine HCl/Naloxone HCl [Zubsolv 5.7-1.4 mg Tablet Sl] 2 tab SL BID hydrOXYzine HCl [Hydroxyzine HCl] 25 mg PO BID
[2018-02-07 06:02] VITALS: BP 92/83
[2018-02-07 07:03] LABS: Oxygen 100 %
--- NOTE | 2018-02-09 08:18 | Progress Note ---
Acute Rapid Response Note - Subjective Date Responded: 02/06/18 Time Responded: 22:30 - Objective Findings: Vital Signs - Last 4 Hours Temperature 97.7 F 02/06/18 20:00 Temperature Source Oral 02/06/18 20:00 Pulse Rate 115 H 02/07/18 00:00 Respiratory Rate 21 02/07/18 00:00 Blood Pressure 92/83 02/07/18 00:00 Blood Pressure Mean 86 02/07/18 00:00 Blood Pressure Source Manual Cuff/Auscultation 02/07/18 00:00 Blood Pressure Position Supine 02/06/18 21:20 02 Sat by Pulse Oximetry 100 02/07/18 00:00 Oxygen Delivery Method 02/07/18 00:00 Oxygen Flow Rate (LPM) 95 02/06/18 21:00 pt had became nonresponsive and rapid resp red - Rapid Response Exam - General General appearance: in distress, other (obtunded with min spont resp and low bp and min palpable pulses ) - Head Head exam: atraumatic - Eye Eye exam: Present: mydriasis - ENT ENT exam: Present: mucous membranes dry - Neck Neck exam: Present: normal inspection, trachea midline - Chest Chest inspection: Present: normal inspection - Respiratory Respiratory exam: Present: respiratory distress, other (dec resp rate ) - Cardiovascular Cardiovascular exam: Present: other (dec pulses ) - Abdominal Exam Abdominal exam: Present: distention, diminished bowel sounds Abdominal tenderness: Present: diffuse - Extremities Exam Extremities exam: Absent: pedal edema - Back Exam Back exam: Present: normal inspection - Neurological Exam Neurological exam: Present: other (obtunded w/o posturing or focal changes ) - Skin Skin exam: Present: dry RR Procedures/Assess/Plan - Bedside Intubation Time Out Performed: No (code) Sedative: none Laryngoscope: White Tube size: 7 Tube uncuffed: No Secured location: teeth Placement confirmation: visualized tube passing through cords, equal breath sounds bilaterally, confirmation by capnometry Patient tolerated procedure intubation: no complications Intubation Complications: none - Additional Bedside Procedures Arterial blood draw: Yes - Reevaluation(s) Time: 23:00 Reevaluation #1: after pressures and blood with ivf wide open - min responsive and was seen with dr pedraza - pt was discussed with and transferred by [facility]
== END 2018-02-07 00:09 | disposition short-term general hospital (02) ==
LOC: ER 11:01 → 2ND 14:23
PROVIDERS: ADMIT Surgery; ATTEND Surgery